=== PATIENT | female | born 1995 ===

== ENCOUNTER 2024-03-08 08:10 | Inpatient (IN) ==
[2024-03-08] MEDS ORDERED: OXYTOCIN 30 UNITS/NSS 30 UNITS/500 ML BAG IV PRN (10:20)
[2024-03-08] MEDS ORDERED: LIDOCAINE 1% LOCAL 20 ML VIAL INFIL PRN (10:20)
--- NOTE | 2024-03-08 10:27 | Obstetrical Progress Note ---
Date of Service March 08, 2024 Assessment & Plan (1) IUGR, : Plan: Induction for IUGR. <5% Day 31 FHR; CAT1 Ctx; Minimal VE ft/50/post Sono 03/07/24 : cephalic in office Discussed induction with pt and spouse Discussed balloon vrs PO Cytotec Pt tolerated pelvic exam poorly Will therefore do Cytotec Plan Cytotec P.O X1 Admission and Anticipated Discharge Date Admission Date: March 08, 2024 Results & Data Vital Signs (Past 12 Hours) Vital Signs Temp Pulse Resp BP 03/08/24 08:40 37 C 90 18 123/71 03/08/24 08:27 90 123/71
[2024-03-08] MEDS: miSOPROStoL 50 MCG TAB PO ONE (10:35)
[2024-03-08 10:43] LABS: Hemoglobin 10.2 g/dl (12.0-16.0); Mean Corpuscular Hemoglobin 29.4 pg (25.0-34.0); Mean Corpuscular Hgb Conc 31.9 g/dL (32.0-36.0); Mean Corpuscular Volume 92.2 fL (80.0-100.0); Platelet Count 201 K/uL (130-400); RDW Coefficient of Variation 14.6 % (11.5-14.5); RDW Standard Deviation 49.1 fL (36.4-46.3); Red Blood Count 3.47 M/uL (4.20-5.40); White Blood Count 10.39 K/ul (4.8-10.8)
[2024-03-08] MEDS ORDERED: DINOPROSTONE 10 MG INSERT PV ONE (14:25)
[2024-03-08] MEDS ORDERED: SODIUM CHLORIDE 0.9% 250 ML IV PRN (14:37)
[2024-03-08] MEDS: miSOPROStoL 50 MCG TAB PO SCH (14:46)
[2024-03-08] MEDS ORDERED: Nursing to Pharmacy Communication SCH (19:15)
--- NOTE | 2024-03-08 20:29 | Obstetrical Progress Note ---
Date of Service March 08, 2024 Assessment & Plan (1) IUGR, : Plan: Induction for IUGR FHR; CAT1 Ctx Minimal Received 2 doses of Cytotec VE; Ft/post/-3 Cervidil placed in vagina Admission and Anticipated Discharge Date Admission Date: March 08, 2024 Results & Data Vital Signs (Past 12 Hours) Vital Signs Temp Pulse Resp BP 03/08/24 19:42 18 03/08/24 19:42 36.9 C 18 03/08/24 19:42 77 03/08/24 19:42 123/80 03/08/24 18:18 78 03/08/24 18:18 124/74 03/08/24 14:48 77 03/08/24 14:48 119/63 03/08/24 14:47 18 03/08/24 14:47 37.1 C 18 03/08/24 08:40 37 C 90 18 123/71
[2024-03-08] MEDS: DINOPROSTONE 10 MG INSERT PV ONE (20:32)
[2024-03-08] MEDS ORDERED: miSOPROStoL 50 MCG TAB PO SCH (21:00)
[2024-03-08] MEDS ORDERED: BUTORPHANOL TARTRATE 2 MG/ML VIAL IV PRN (23:16)
[2024-03-09] MEDS: LACTATED RINGER'S 1,000 ML IV ONE (01:30)
--- NOTE | 2024-03-09 05:35 | Obstetrical Progress Note ---
Date of Service March 09, 2024 Assessment & Plan Admission and Anticipated Discharge Date Admission Date: March 08, 2024 Subjective Patient ANIKA'ed at 04:55, clear She has been painful since 4 am and has just asked for pain meds VE: unable to complete the exam due to intolarance, she is screaming, head is lower, -1, cervix 1 cm, soft, thin FHR categ I Alverda: ctxs every min for about 3-4 ctx and then a break of 4 minutes in between Discussed IV pin meds vs epidural She desires epidural Continue to monitor closely Epidural for pain and start Oxytocin to augment contraction if needed. Results & Data Vital Signs (Past 12 Hours) Vital Signs Temp Pulse Resp BP 03/09/24 03:00 18 03/09/24 03:00 36.6 C 18 03/09/24 02:59 67 124/74 03/08/24 22:30 18 03/08/24 22:30 37.0 C 18 03/08/24 22:30 86 03/08/24 22:30 121/56 L 03/08/24 19:42 18 03/08/24 19:42 36.9 C 18 03/08/24 19:42 77 03/08/24 19:42 123/80 03/08/24 18:18 78 03/08/24 18:18 124/74
[2024-03-09] MEDS: LACTATED RINGER'S 1,000 ML IV PRN (05:37)
[2024-03-09] MEDS ORDERED: diphenhydrAMINE 50 MG/ML VIAL IV PRN (06:04)
[2024-03-09] MEDS ORDERED: SODIUM CHLORIDE 0.9% PF INJ 10 ML VIAL EPI PRN (06:04)
[2024-03-09] MEDS ORDERED: NALOXONE HCL 0.4 MG/1 ML VIAL/CARP IV PRN (06:04)
[2024-03-09] MEDS ORDERED: fentANYL 2 MCG/ML BUPIVacaine 0.125%-NSS 100ML BAG EPI PRN (06:04)
[2024-03-09] MEDS ORDERED: NALOXONE HCL 1 MG in SODIUM CHLORIDE 0.9% 1,000 ML IV PRN (06:04)
[2024-03-09] MEDS ORDERED: LIDOCAINE 2% MPF LOCAL 5 ML VIAL EPI PRN (06:04)
[2024-03-09] MEDS ORDERED: fentaNYL citrate PF 100 MCG/2 ML VIAL EPI PRN (06:04)
[2024-03-09] MEDS ORDERED: ROPIVACAINE 0.5% PF 5 MG/ML 20 ML VIAL EPI PRN (06:04)
[2024-03-09] MEDS ORDERED: BUPIVACAINE 0.25% PF 30 ML VIAL EPI PRN (06:04)
[2024-03-09] MEDS ORDERED: ePHEDrine sulfate 50 MG/ML AMP IV PRN (06:04)
[2024-03-09] MEDS ORDERED: NALBUPHINE HCL 5 MG in SYRINGE 0 ML IV PRN (06:04)
--- NOTE | 2024-03-09 06:04 | Anesthesiology Consultation ---
Date of Service March 09, 2024 Assessment & Plan (1) Encounter for pre-operative examination: Chart Review Chart Review: Patient NOT seen in Pre Admission Testing and Acceptable Risk for Labor Epidural Consults Requested none History Height/Weight Height: 5 ft 6 in Weight: 66.224 kg Allergies Allergy/AdvReac Type Severity Reaction Status Date / Time No Known Allergies Allergy Unverified 03/08/24 08:53 Medications Home Medications Medication Instructions Recorded Confirmed Last Taken 1 tab PO DAILY 03/08/24 03/08/24 03/07/24 09:00 ferrous sulfate 325 mg (65 mg 65 mg PO DAILY 03/08/24 03/08/24 03/07/24 19:00 iron) tablet vitamin [id number] acid 1 tab PO DAILY 03/08/24 03/08/24 03/07/24 10:00 Past Medical History Medical History Oligohydramnios Thrombocythemia Polycythemia Anemia affecting Past Surgical History Surgical History History of dilation and curettage Social History Smoking Status: Never smoker Hx Alcohol Use: No Hx Substance Use: No substance use type: does not use Physical Exam Vital Signs Last Vital Signs Temp 97.9 F 03/09/24 03:00 Pulse 69 03/09/24 05:58 Resp 18 03/09/24 03:00 BP 124/74 03/09/24 02:59 Pulse Ox 100 03/09/24 05:58 Testing Laboratory Results 03/08/24 10:24 Blood Type A Positive 03/08/24 10:24 Antibody Screen NEGATIVE 03/08/24 10:24
[2024-03-09] MEDS: BUPIVACAINE 0.25% PF 30 ML VIAL ONE (06:28)
[2024-03-09] MEDS: LIDOCAINE 2%/EPINEPHRINE 1:200,000 20 ML PF ONE (06:28)
[2024-03-09] MEDS: fentANYL 2 MCG/ML BUPIVacaine 0.125%-NSS 100ML BAG ONE (06:30)
[2024-03-09] MEDS: fentaNYL citrate PF 100 MCG/2 ML VIAL EPI STA (06:46)
[2024-03-09] MEDS: BUPIVACAINE 0.25% PF 30 ML VIAL EPI STA (06:46)
[2024-03-09] MEDS: fentaNYL citrate PF 100 MCG/2 ML VIAL ONE (06:46)
[2024-03-09] MEDS: SODIUM CHLORIDE 0.9% PF INJ 10 ML VIAL ONE (06:46)
[2024-03-09] MEDS: ePHEDrine sulfate 50 MG/ML AMP ONE (06:46)
[2024-03-09] MEDS: SODIUM CHLORIDE 0.9% PF INJ 10 ML VIAL EPI STA (06:47)
[2024-03-09] MEDS: LIDOCAINE 2%/EPINEPHRINE 1:200,000 20 ML PF EPI STA (06:47)
[2024-03-09] MEDS: OXYTOCIN 30 UNITS/NSS 30 UNITS/500 ML BAG IV PRN (07:59)
--- NOTE | 2024-03-09 08:23 | Obstetrical Progress Note ---
Date of Service March 09, 2024 Assessment & Plan (1) 39 weeks gestation of : Plan: Continue oxytocin for augmentation, titrate as appropriate Continue to monitor Anticipate spontaneous vaginal delivery (2) IUGR, : (3) Anemia affecting in third trimester: Admission and Anticipated Discharge Date Admission Date: March 08, 2024 Subjective Patient currently comfortable on epidural at this time, no complaints Oxytocin currently started by nursing staff in the room Physical Exam Genitourinary: heart tracing: Baseline 130, moderate variability, positive accelerations no decelerations, currently category 1 Tocometer: Contractions hard to trace Oxytocin currently starting at 2 milliunits/h Cervix: 5/90/-1, IUPC was placed and noted resistance with some blood within the IUPC, noted category 1 tracing, and IUPC was repositioned without any complications. No cord felt. Results & Data Vital Signs (Past 12 Hours) Vital Signs Temp Pulse Resp BP Pulse Ox 03/09/24 08:08 65 100 03/09/24 08:03 67 100 03/09/24 08:01 70 114/57 L 03/09/24 07:58 72 100 03/09/24 07:53 65 100 03/09/24 07:48 65 100 03/09/24 07:46 65 122/60 03/09/24 07:43 66 100 03/09/24 07:38 65 100 03/09/24 07:33 64 100 03/09/24 07:31 66 114/57 L 03/09/24 07:30 16 03/09/24 07:30 16 03/09/24 07:28 73 100 03/09/24 07:23 79 100 03/09/24 07:18 66 100 03/09/24 07:17 64 112/57 L 03/09/24 07:13 67 100 03/09/24 07:08 74 100 03/09/24 07:03 68 100 03/09/24 07:00 36.7 C 18 03/09/24 06:58 85 100 03/09/24 06:57 60 112/57 L 03/09/24 06:53 67 100 03/09/24 06:52 66 120/65 03/09/24 06:48 76 141/63 H 100 03/09/24 06:43 69 100 03/09/24 06:42 66 114/60 03/09/24 06:38 85 100 03/09/24 06:37 65 112/59 L 03/09/24 06:33 74 100 03/09/24 06:32 73 116/68 03/09/24 06:31 69 116/63 03/09/24 06:30 76 116/56 L 03/09/24 06:29 71 117/60 03/09/24 06:28 100 03/09/24 06:28 74 03/09/24 06:28 85 120/55 L 03/09/24 06:26 83 120/69 03/09/24 06:25 78 124/62 03/09/24 06:24 82 122/57 L 03/09/24 06:23 84 128/64 100 03/09/24 06:18 73 144/71 H 100 03/09/24 06:13 87 100 03/09/24 06:08 80 100 03/09/24 06:03 83 100 03/09/24 05:58 69 100 03/09/24 05:53 68 100 03/09/24 05:48 68 100 03/09/24 05:43 75 100 03/09/24 03:00 18 03/09/24 03:00 36.6 C 18 03/09/24 02:59 67 124/74 03/08/24 22:30 18 03/08/24 22:30 37.0 C 18 03/08/24 22:30 86 03/08/24 22:30 121/56 L
[2024-03-09] MEDS: METHYLERGONOVINE MALEATE 0.2 MG/ML AMP ONE (13:31)
[2024-03-09] MEDS ORDERED: HYDROCORTISONE ACETATE 25 MG SUPP PR PRN (13:48)
[2024-03-09] MEDS ORDERED: DIPHTHER/TETAN/PERTUS Vaccine (Tdap, Adol/Adult) 0.5mL IM ONE (13:48)
[2024-03-09] MEDS ORDERED: bisacodyL 10 MG SUPP PR PRN (13:48)
[2024-03-09] MEDS ORDERED: IBUPROFEN 600 MG TAB PO PRN (13:48)
[2024-03-09] MEDS ORDERED: BENZOCAINE 20% SPRY 85 APPLN/85 GM CAN EXT PRN (13:48)
[2024-03-09] MEDS ORDERED: ACETAMINOPHEN 325 MG TAB PO PRN (13:48)
[2024-03-09] MEDS ORDERED: OXYTOCIN 30 UNITS/NSS 30 UNITS/500 ML BAG IV PRN (13:48)
--- NOTE | 2024-03-09 13:52 | Delivery Summary ---
Vaginal Delivery Summary Date of Service March 09, 2024 Vaginal Delivery Summary Delivery Note Delivery Summary: Patient was placed in the dorsal lithotomy position. She was prepped and draped in the usual sterile fashion. Upon maternal pushing the head was delivered atraumatically followed by the anterior shoulders, posterior shoulders then the remainder of the infants body. The infant was immediately placed on mother's abdomen, dried and stimulated. The infants mouth and nose were bulb suctioned by nursing staff. A male infant was delivered at 1327, weight pending with APGARS of 8 at 1 minute and 9 at 5 minutes. The infant was handed off to the awaiting nursing staff. Cord blood gases were not obtained. During downward traction of the umbilical cord, noted avulsion of the umbilical cord. Manual removal was performed of the placenta. After which uterine atony was noted and the hemorrhage cart was brought in. It responded to bimanual massage and 1 dose of Methergine after drainage of her bladder. Uterine tone at this time was noted to be normal. Placenta was sent to pathology. Thirty units of Pitocin were added to the IV fluid and allowed to run freely. Uterine massage was performed until uterus was deemed firm. Upon inspection of the perineum, noted a second-degree laceration that was repaired with 3-0 Vicryl in the usual fashion. Upon re-inspection the patient was hemostatic. Uterus again massaged and found to be firm. Needle and sponge counts were correct. Will give 1 dose of Ancef for prophylaxis due to manual removal of placenta. Patient was stable and allowed to recover in L&D room. Infant was stable and remained in room with mother in the labor and delivery unit. EBL 500, QBL currently pending
[2024-03-09] MEDS: ceFAZolin 2000MG 2,000 MG/15 ML SYR IV ONE (14:14)
--- NOTE | 2024-03-09 17:00 | Anesthesia Procedure Note ---
Date of Service March 09, 2024 Anesthesia Post Epidural Note Vital Signs Vital Signs: Temp Pulse Resp BP Pulse Ox 37.4 C 72 18 138/79 100 03/09/24 15:45 03/09/24 15:48 03/09/24 15:45 03/09/24 15:48 03/09/24 13:44 Pain Intensity Lower Abdomen: Pain Intensity: 3 Notes Mental Status: alert / awake / arousable Nausea / Vomiting: adequately controlled Pain: adequately controlled Airway Patency, RR, SpO2: stable & adequate BP & HR: stable & adequate Hydration State: stable & adequate Neuraxial Anesthesia: was administered and sensory block is resolving Anesthetic Complications: no major complications apparent and Pt Satisfied with anesthetic care Epidural: Removed without complications and With tip intact
[2024-03-09] MEDS: DOCUSATE SODIUM 100 MG CAP PO SCH (20:54)
[2024-03-10 07:08] LABS: Hematocrit (blood only) 24.3 % (37.0-47.0); Hemoglobin 7.9 g/dl (12.0-16.0); Mean Corpuscular Hemoglobin 29.3 pg (25.0-34.0); Mean Corpuscular Hgb Conc 32.5 g/dL (32.0-36.0); Platelet Count 168 K/uL (130-400); RDW Coefficient of Variation 14.3 % (11.5-14.5); RDW Standard Deviation 46.4 fL (36.4-46.3); White Blood Count 17.21 K/ul (4.8-10.8)
[2024-03-10] MEDS: IRON SUCROSE 400 MG in SODIUM CHLORIDE 0.9% 250 ML IV ONE (09:16)
[2024-03-10] MEDS: FERROUS SULFATE 325 MG TAB PO SCH (09:35)
[2024-03-10] MEDS: PRENATAL VITAMIN 1 TAB PO SCH (09:36)
--- NOTE | 2024-03-10 09:47 | Obstetrical Progress Note ---
Date of Service March 10, 2024 Subjective Ambulation: ambulating normally Voiding: no voiding problems Passing Gas:: Yes Diet Tolerance:: regular diet Lochia:: Small Feeding Type:: breast feeding Current Pain Level(1-10): 0 doing well Physical Exam Constitutional WD/WN, vitals as above Gastrointestinal (Abdomen) Inspection/Auscultation: abdomen normal to inspection abdomen soft and non-tender. fundus firm below U Musculoskeletal Extremities: extremities normal to inspection Skin no rashes, warm and dry Neurologic patellar DTR's 2+ bilat, sensation intact Psychiatric A+Ox3, euthymic affect Results & Data Vital Signs (Past 12 Hours) Vital Signs Temp Pulse Resp BP Pulse Ox O2 Del Method 03/10/24 03:24 37.3 C 106 H 18 118/71 96 Room Air 03/09/24 23:01 36.9 C 91 H 18 109/72 99 Room Air Laboratory Results Laboratory Results - last 72 hr 03/08/24 03/10/24 10:24 06:20 WBC 10.39 17.21 H RBC 3.47 L 2.70 L Hgb 10.2 L 7.9 L Hct 32.0 L 24.3 L MCV 92.2 90.0 MCH 29.4 29.3 MCHC 31.9 L 32.5 RDW Std Deviation 49.1 H 46.4 H RDW Coeff of Willard 14.6 H 14.3 Plt Count 201 168 MPV 13.0 H 13.0 H Blood Type A Positive Antibody Screen NEGATIVE Crossmatch See Detail
[2024-03-10] MEDS: bisacodyL 5 MG TABEC PO SCH (20:47)
[2024-03-11 07:50] LABS: Hematocrit (blood only) 23.6 % (37.0-47.0); Hemoglobin 7.4 g/dl (12.0-16.0)
--- NOTE | 2024-03-11 08:39 | Obstetrical Progress Note ---
Date of Service March 11, 2024 Assessment & Plan (1) Normal course: Continue routine course Discharge home today with instructions. (2) Anemia, : Continue iron and Colace twice daily Subjective Ambulation: ambulating normally Voiding: no voiding problems Passing Gas:: Yes Diet Tolerance:: regular diet Lochia:: Moderate Feeding Type:: breast feeding Current Pain Level(1-10): 0 Patient doing well, bonding with baby in the room. Would like to go home today Physical Exam Constitutional WD/WN, vitals as above Respiratory normal respiratory effort, lungs clear to auscultation Cardiovascular RRR, no murmur, no edema Gastrointestinal (Abdomen) normal bowel sounds, soft, nontender, no hepatosplenomegaly Fundus below U Results & Data Vital Signs (Past 12 Hours) Vital Signs Temp Pulse Resp BP Pulse Ox O2 Del Method 03/11/24 08:00 36.6 C 96 H 20 109/74 99 Room Air 03/11/24 00:30 36.6 C 97 H 18 116/76 99 Room Air 03/10/24 20:45 36.7 C 97 H 18 106/70 96 Room Air Diagnostic Findings Laboratory Results WBC 17.21 K/ul (4.8-10.8) H 03/10/24 06:20 RBC 2.70 M/uL (4.20-5.40) L 03/10/24 06:20 Hgb 7.4 g/dl (12.0-16.0) L 03/11/24 07:01 Hct 23.6 % (37.0-47.0) L 03/11/24 07:01 MCV 90.0 fL (80.0-100.0) 03/10/24 06:20 MCH 29.3 pg (25.0-34.0) 03/10/24 06:20 MCHC 32.5 g/dL (32.0-36.0) 03/10/24 06:20 RDW Std Deviation 46.4 fL (36.4-46.3) H 03/10/24 06:20 RDW Coeff of Willard 14.3 % (11.5-14.5) 03/10/24 06:20 Plt Count 168 K/uL (130-400) 03/10/24 06:20 MPV 13.0 fL (9.4-12.4) H 03/10/24 06:20 Blood Type A Positive 03/08/24 10:24 Antibody Screen NEGATIVE 03/08/24 10:24 Crossmatch See Detail 03/08/24 10:24
== END 2024-03-11 11:55 | disposition home or self-care (01) | DRG 807 ==
LOC: 4S1 08:10 → 4E2 03-09 16:39